=== PATIENT | male | born 1940 | race African-American/Black ===

== ENCOUNTER 2018-02-15 15:40 | Inpatient (IN) ==
--- NOTE | 2018-02-15 15:57 | Emergency Department Note ---
Disposition Clinical Impression: NSTEMI (non-ST elevated myocardial infarction) Chest pain Qualifiers: Chest pain type: unspecified Qualified Code(s): R07.9 - Chest pain, unspecified Disposition: Admitted As Inpatient Condition: Good [facility]: [facility] [Primary Care Provider[facility] - Forms: ED Satisfaction Letter Time of Disposition: 17:17 General Adult HPI - General Chief complaint: ED Chest Pain Stated complaint: CP Time Seen by Provider: 02/15/18 15:48 Source: patient, EMS Limitations: no limitations Nursing Notes Reviewed: Yes Vital Signs Reviewed: Yes - History of Present Illness HPI Narrative: Patient is a 77 year old male that presents to the emergency via EMS from the [place] for chest pain. Patient reported that he had an elevated troponin at the [facility] of 0.104. Patient states that his chest pain was severe prior to arrival. States that his chest pain was a 10 out of 10 but reports that he is not having any active chest pain at this time. Patient states that his pain was left- sided and radiated into his left shoulder and neck. Patient states that is a pressure feeling patient does state that he has had multiple stents had been placed in the past abnormal [place]. Patient denies any diaphoresis or nausea during these events. Pain Scale: 0 - Related Data Home Medications Medication Instructions Recorded Confirmed HYDROcodone/Acet 5/325 mg [[place] 1 tab PO Q6H PRN 02/15/18 02/15/18 5-325 mg] Allergies Allergy/AdvReac Type Severity Reaction Status Date / Time No Known Allergies Allergy Verified 02/15/18 16:03 Cardiovascular: Reports: chest pain Gastrointestinal: Denies: abdominal pain, nausea Musculoskeletal: Reports: neck pain. Denies: back pain Past Medical History - Past Medical History Medical history: Reports: arthritis, cancer, hyperlipidemia, hypertension, other Surgical history: Reports: appendectomy Psychiatric history: Reports: anxiety, depression - Social History Smoking Status: Current every day smoker Smokeless Tobacco Status: No Alcohol use: Reports: heavy Drug use: Reports: marijuana Physical Exam - General Limitations: no limitations General appearance: alert, in no apparent distress - Head Head exam: atraumatic, normocephalic - Eye Eye exam: Present: normal appearance, EOMI - Neck Neck exam: Present: normal inspection, full ROM, trachea midline - Respiratory Respiratory exam: Present: normal lung sounds bilaterally. Absent: respiratory distress, wheezes - Cardiovascular Cardiovascular exam: Present: regular rate, normal rhythm, normal heart sounds, +S1, +S2 - Abdominal Exam Abdominal exam: Present: soft, Non-Tender, normal bowel sounds - Neurological Exam Neurological exam: Present: alert, oriented X3 - Psychiatric Psychiatric exam: Present: normal affect, normal mood - Skin Skin exam: Present: warm, dry, intact Course - Reevaluation(s) Reevaluation #1: Occult spoke with the admitting hospice and they have accepted the patient to his service. Patient be admitted to the hospital. Further evaluation and management. He requested we call cardiology this will be done. Time: 17:09 Reevaluation #2: I called and spoke with cardiology and they are aware of the patient. They did not have any further recommendations at this time. Time: 17:13 Vital Signs Temperature 98.8 F 02/15/18 15:44 Pulse Rate 86 02/15/18 15:44 Respiratory Rate 24 02/15/18 15:44 Blood Pressure 163/84 02/15/18 15:44 O2 Sat by Pulse Oximetry 97 02/15/18 15:44 Temperature 98.8 F 02/15/18 15:44 Pulse Rate 86 02/15/18 15:44 Respiratory Rate 24 02/15/18 15:44 Blood Pressure 163/84 02/15/18 15:44 O2 Sat by Pulse Oximetry 97 02/15/18 15:44 Oxygen Delivery Oxygen Delivery Room Air Medical Decision Making - MDM Narrative Medical decision making narrative: Due to the patient presenting with left-sided chest pain and a elevated troponin from an outside facility we will repeat laboratory testing including a CBC, BMP, troponin chest x-ray and EKG. The patient will likely need to be admitted to the hospital for further evaluation and management. If the troponin is elevated. [place] we will start the patient on ACS protocol heparin. The patient did receive aspirin at outside facility. I do not feel it is necessary for the patient to receive another dose here. Patient's chest x-ray showed no acute cardial or pulmonary process. The patient's troponin is 0.15. Liz. The patient will be started on ACS protocol heparin and will need to be admitted to the hospital. The remainder of his laboratory testing is unremarkable. I called and spoke with the hospitals in the promotions executive producer. The patient will be admitted to the hospital for further evaluation and management at this time. - Medical Records Medical records reviewed: Yes I reviewed the patient's medical records. - Lab Data Lab results reviewed: Yes I reviewed the patient's lab results. Result diagrams: 02/15/18 16:02 02/15/18 16:02 Lab Results 02/15/18 02/15/18 02/15/18 Range/Units 16:02 16:02 16:02 WBC 5.1 (4.3-11.1) K/mcL RBC 4.29 (4.19-5.50) M/mcL Hgb 13.4 (12.9-16.9) g/dL Hct 40.7 (37.5-50.1) % MCV 94.9 (83.0-100.0) fL MCH 31.2 (28.0-33.3) pg MCHC 32.9 (31.6-35.5) g/dL RDW 16.0 H (11.5-14.5) % Plt Count 132 L (140-400) K/mcL MPV 10.3 (9.4-12.4) fL Immature Gran % 0.6 (0-4) % Seg Neutrophils % 46.6 % Lymphocytes % 34.2 % Monocytes % 16.8 % Eosinophils % 1.4 % Basophils % 0.4 % Neutrophils # 2.4 (1.6-8.9) K/mcL Lymphocytes # 1.7 (0.6-4.6) K/mcL Monocytes # 0.9 (0.0-1.3) K/mcL Eosinophils # 0.1 (0.0-0.6) K/mcL Basophils # 0.0 (0.0-0.2) K/mcL PT 12.0 (9.4-12.1) Seconds INR 1.1 APTT 34.3 (26.0-36.0) Seconds Sodium 138 (136-145) mEq/L Potassium 4.1 (3.5-5.1) mEq/L Chloride 106 (98-107) mEq/L Carbon Dioxide 25 (23-29) mEq/L BUN 14 (8-23) mg/dL Creatinine 1.01 (0.70-1.30) mg/dL Est GFR ( Amer) > 60 (> 60) Est GFR (Non-Af Amer) > 60 (> 60) BUN/Creatinine Ratio 14 (6-26) Glucose 100 (70-105) mg/dL Calculated Osmolality 287 (280-300) Calcium 9.4 (8.6-10.3) mg/dL Troponin I 0.15 H* (< 0.04) ng/mL - Radiology Data Radiology results reviewed: Yes I reviewed the patient's radiology results. Chest X-Ray 02/15/18 15:50 IMPRESSION: No acute cardiopulmonary abnormality. D/ / Mithc Mccall / Mitch Mccall Interpreting Provider: Mitch Mccall - EKG Data EKG #1 EKG attestation: Yes I reviewed and interpreted this EKG. EKG results narrative: EKG shows a sinus rhythm at a rate of 75 bpm, CA interval of 142, QRS duration 98, QTc of 430 with a normal axis. There is no evidence of STEMI on EKG. This was compared to previous EKG on 03/21/17 which showed a sinus rhythm at a rate of 71 bpm.
[2018-02-15 16:23] LABS: Basophils % 0.4 %; Eosinophils # 0.1 K/mcL (0.0-0.6); Eosinophils % 1.4 %; Hematocrit 40.7 % (37.5-50.1); Hemoglobin 13.4 g/dL (12.9-16.9); Immature Granulocytes % 0.6 % (0-4); Lymphocytes # 1.7 K/mcL (0.6-4.6); Lymphocytes % 34.2 %; Mean Corpuscular HGB Conc 32.9 g/dL (31.6-35.5); Mean Corpuscular Hemoglobin 31.2 pg (28.0-33.3); Mean Corpuscular Volume 94.9 fL (83.0-100.0); Mean Platelet Volume 10.3 fL (9.4-12.4); Monocytes # 0.9 K/mcL (0.0-1.3); Monocytes % 16.8 %; Neutrophils # 2.4 K/mcL (1.6-8.9); Platelet Count 132 K/mcL (140-400); Red Blood Count 4.29 M/mcL (4.19-5.50); Segmented Neutrophils % 46.6 %
[2018-02-15 16:37] LABS: BUN/Creatinine Ratio 14 (6-26); Blood Urea Nitrogen 14 mg/dL (8-23); Calcium 9.4 mg/dL (8.6-10.3); Carbon Dioxide 25 mEq/L (23-29); Chloride 106 mEq/L (98-107); Glucose 100 mg/dL (70-105); Osmolality,Calculated 287 (280-300); Potassium 4.1 mEq/L (3.5-5.1); Sodium 138 mEq/L (136-145); eGFR For African Americans > 60 (> 60); eGFR For Non-African Americans > 60 (> 60)
[2018-02-15 16:48] LABS: Troponin I 0.15 ng/mL (< 0.04)
[2018-02-15] MEDS ORDERED: *HR* Heparin 5,000 UNIT/ML VIAL IVP PRN ×2 (16:48)
[2018-02-15] MEDS ORDERED: *HR* Heparin 5,000 UNIT/ML VIAL IVP ONE (16:48)
[2018-02-15 17:08] LABS: INR 1.1
[2018-02-15 17:11] LABS: Activated Partial Thrombo Time 34.3 Seconds (26.0-36.0)
[2018-02-15] MEDS ORDERED: Naloxone 0.4 MG/ML INJ IVP PRN (17:17)
[2018-02-15] MEDS: Heparin 25,000 UNIT/500 ML D5W 25,000 UNIT/500 ML BAG IVC SCH (17:19)
--- NOTE | 2018-02-15 17:40 | Emergency Department Note ---
Disposition Clinical Impression: NSTEMI (non-ST elevated myocardial infarction) Chest pain Qualifiers: Chest pain type: unspecified Qualified Code(s): R07.9 - Chest pain, unspecified Disposition: Admitted As Inpatient Condition: Good General Adult HPI - General Chief complaint: ED Chest Pain Stated complaint: CP Time Seen by Provider: 02/15/18 15:48 Source: patient, EMS Limitations: no limitations - History of Present Illness Pain Scale: 0 - Related Data Home Medications Medication Instructions Recorded Confirmed HYDROcodone/Acet 5/325 mg [[place] 1 tab PO Q6H PRN 02/15/18 02/15/18 5-325 mg] Allergies Allergy/AdvReac Type Severity Reaction Status Date / Time No Known Allergies Allergy Verified 02/15/18 16:03 Cardiovascular: Reports: chest pain Gastrointestinal: Denies: abdominal pain, nausea Musculoskeletal: Reports: neck pain. Denies: back pain Past Medical History - Past Medical History Medical history: Reports: arthritis, cancer, hyperlipidemia, hypertension, other Surgical history: Reports: appendectomy Psychiatric history: Reports: anxiety, depression - Social History Smoking Status: Current every day smoker Smokeless Tobacco Status: No Alcohol use: Reports: heavy Drug use: Reports: marijuana Physical Exam - General Limitations: no limitations General appearance: alert, in no apparent distress Course Vital Signs Temperature 98.8 F 02/15/18 15:44 Pulse Rate 86 02/15/18 15:44 Respiratory Rate 24 02/15/18 15:44 Blood Pressure 163/84 02/15/18 15:44 O2 Sat by Pulse Oximetry 97 02/15/18 15:44 Temperature 98.8 F 02/15/18 15:44 Pulse Rate 85 02/15/18 17:25 Respiratory Rate 18 02/15/18 17:25 Blood Pressure 160/111 02/15/18 17:25 O2 Sat by Pulse Oximetry 96 02/15/18 17:25 Oxygen Delivery Oxygen Delivery Room Air Medical Decision Making - Lab Data Result diagrams: 02/15/18 16:02 02/15/18 16:02 Lab Results 02/15/18 02/15/18 02/15/18 Range/Units 16:02 16:02 16:02 WBC 5.1 (4.3-11.1) K/mcL RBC 4.29 (4.19-5.50) M/mcL Hgb 13.4 (12.9-16.9) g/dL Hct 40.7 (37.5-50.1) % MCV 94.9 (83.0-100.0) fL MCH 31.2 (28.0-33.3) pg MCHC 32.9 (31.6-35.5) g/dL RDW 16.0 H (11.5-14.5) % Plt Count 132 L (140-400) K/mcL MPV 10.3 (9.4-12.4) fL Immature Gran % 0.6 (0-4) % Seg Neutrophils % 46.6 % Lymphocytes % 34.2 % Monocytes % 16.8 % Eosinophils % 1.4 % Basophils % 0.4 % Neutrophils # 2.4 (1.6-8.9) K/mcL Lymphocytes # 1.7 (0.6-4.6) K/mcL Monocytes # 0.9 (0.0-1.3) K/mcL Eosinophils # 0.1 (0.0-0.6) K/mcL Basophils # 0.0 (0.0-0.2) K/mcL PT 12.0 (9.4-12.1) Seconds INR 1.1 APTT 34.3 (26.0-36.0) Seconds Sodium 138 (136-145) mEq/L Potassium 4.1 (3.5-5.1) mEq/L Chloride 106 (98-107) mEq/L Carbon Dioxide 25 (23-29) mEq/L BUN 14 (8-23) mg/dL Creatinine 1.01 (0.70-1.30) mg/dL Est GFR ( Amer) > 60 (> 60) Est GFR (Non-Af Amer) > 60 (> 60) BUN/Creatinine Ratio 14 (6-26) Glucose 100 (70-105) mg/dL Calculated Osmolality 287 (280-300) Calcium 9.4 (8.6-10.3) mg/dL Troponin I 0.15 H* (< 0.04) ng/mL Attestation Statement - Attestation Attestation: I examined this patient and my medical decision-making was reviewed with the Resident Physician. I agree with the documented findings, disposition and treatment plan as described except to the extent set forth below. 77 year old male presents to the ED with complaints of chest pain for the past 1.5 months and has had muliptle evalution for his exertional chest pain which appears to be gettig worse he was evaluated at the CT and found to have a troponin of 0.104. Appears to be an NSTEMI, no new ischemic changes on EKG and currently chest pain free. We will admit to medicine with heparin drip
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
[2018-02-15 23:42] LABS: Activated Partial Thrombo Time 122.9 Seconds (26.0-36.0)
[2018-02-15 23:43] LABS: Heparin anti-factor XA UFH 0.58 IU/mL (0.30-0.70)
[2018-02-15] MEDS ORDERED: Nitroglycerin 0.4 MG TAB.SUBL SL PRN (23:58)
[2018-02-16 05:00] LABS: Hematocrit 38.4 % (37.5-50.1); Hemoglobin 12.6 g/dL (12.9-16.9); Mean Corpuscular HGB Conc 32.8 g/dL (31.6-35.5); Mean Corpuscular Hemoglobin 31.3 pg (28.0-33.3); Mean Corpuscular Volume 95.5 fL (83.0-100.0); Mean Platelet Volume 10.7 fL (9.4-12.4); Platelet Count 129 K/mcL (140-400); Red Blood Count 4.02 M/mcL (4.19-5.50); Red Cell Distribution Width 16.1 % (11.5-14.5)
[2018-02-16 05:25] LABS: BUN/Creatinine Ratio 16 (6-26); Blood Urea Nitrogen 16 mg/dL (8-23); Calcium 9.1 mg/dL (8.6-10.3); Carbon Dioxide 22 mEq/L (23-29); Chloride 108 mEq/L (98-107); Chol/HDL Ratio 3.8 (0-4.9); Cholesterol 128 mg/dL (< 200); Glucose 118 mg/dL (70-105); HDL Cholesterol 34 mg/dL (40-59); LDL Cholesterol,Calculated 66 mg/dL (0-99); Osmolality,Calculated 288 (280-300); Sodium 138 mEq/L (136-145); Triglycerides 141 mg/dL (< 150); eGFR For African Americans > 60 (> 60); eGFR For Non-African Americans > 60 (> 60)
[2018-02-16] MEDS: Aspirin 81 MG TAB.CHEW PO SCH (08:46)
--- NOTE | 2018-02-16 08:58 | Cardiology Consult Note ---
Date of Encounter: 02/16/18 Time of Encounter: 08:56 Assessment and Plan (1) NSTEMI (non-ST elevated myocardial infarction) Current Visit: Yes Status: Acute NSTEMI. Typical chest pain symptoms. Troponin up to 0.26. EKG from [place] shows NSR with PAC and ST depression in the inferior leads. Repeat EKG at [place] does not show ST depression. Agree with heparin gtt. Asa, statin, and bb. Check TTE. I discussed LHC. Patient states he will probably not take any medications after his LHC but he will consider. If he is not able to be compliant he will not be a good candidate for PCI. He is considering. Discussion w patient/family: The assessment and plan as outlined above was discussed with the patient and/or family members who expressed understanding and agreement. All questions were answered. Thank you for involving us in the care of your patient. Please call with any questions. History of Present Illness Consult date: 02/16/18 Requesting physician: Adrian Harmon Consult reason: NSTEMI Chief complaint: Chest pain History of present illness: Mr. Cooper is a 77 year old male with past medical history of CAD s/p PCI at [facility] in 2012, lung cancer s/p lung resection, and ETOH abuse. He presented to the [place] 02/13/18 with the c/o intermittent left sided chest pain radiating to his neck for about a month and a half. His pain increases with activity and is relieved with rest. His pain was increasing over the past week. He denies SOB. He states that he only takes a pain pill at home and sometimes an asa. He did not take his medications after his last stent placement. Past Med Surg Social Fam HX - Past Medical History Medical history: arthritis, cancer, coronary artery disease, other Psychiatric history: anxiety, depression - Past Surgical History Surgical History: appendectomy, other (Lung resection.) - Social History Smoking Status: Current every day smoker Packs per day: MARIJUANA Smokeless Tobacco Status: No Alcohol use: heavy (12+ beers a day and whisky) Drug use: marijuana - Family History Mother History Unknown: Yes Father Living Status: Age at : 65 Cause of : ENLARGED HEART Hx Family Cardiac Disorders: Yes Hx Family Respiratory Disorders: Yes Hx Family Endocrine Disorder: No Hx Family Medical Disorders: Yes Medications and Allergies HYDROcodone/Acet 5/325 mg [[place] 5-325 mg] 1 tab PO Q6H PRN 02/15/18 [History] 3 Allergy/AdvReac Type Severity Reaction Status Date / Time No Known Allergies Allergy Verified 02/15/18 16:03 All Systems Review: The remainder of the systems were reviewed and are negative Physical Examination Vital Signs, Last 4 Hours Temp Pulse Resp BP Pulse Ox 02/16/18 06:49 98.3 F 68 16 123/66 94 02/16/18 05:25 98.2 F 63 15 128/65 96 General: Conversant, No Apparent Distress HEENT: Normocephaly, Mucus Membranes Moist, Other (left periorbital, Ecchymosis) Neck: No JVD, Normal carotid pulses Cardiac: Reg Rate and Rhythm, Normal S1 and S2, No Murmur Lungs: Normal Breath Sounds, No Wheeze, Rales, Rhonchi Neuro: Alert and responsive, No focal deficits noted Abdomen: Soft, Non-Tender Skin: No rashes noted on visualized skin Musculoskeletal: No Chest Wall Tenderness Extremities: No Clubbing, No Cyanosis, No Edema, Normal Pulses Results 02/16/18 03:57 02/16/18 03:57 Lab Results 02/15/18 02/15/18 02/16/18 22:57 22:57 03:57 WBC Hgb Hct Plt Count APTT 122.9 H* D Sodium Potassium Chloride Carbon Dioxide BUN Creatinine Glucose Calcium Troponin I 0.26 H* 0.23 H* 02/16/18 02/16/18 02/16/18 03:57 03:57 06:58 WBC 4.0 L Hgb 12.6 L Hct 38.4 Plt Count 129 L APTT 57.7 H D Sodium 138 Potassium 4.0 Chloride 108 H Carbon Dioxide 22 L BUN 16 Creatinine 1.01 Glucose 118 H Calcium 9.1 Troponin I - Imaging and Cardiology Chest Xray: report reviewed Cardiac cath: pending - EKG Interpretation EKG results cardiology: personally reviewed Consult Discharge Plan - Plan Referrals: [facility],PCP [Primary Care Provider] -
--- NOTE | 2018-02-16 09:42 | Internal Med Progress Note ---
Date of Encounter: 02/16/18 Time of Encounter: 07:30 - Assessment and plan (1) NSTEMI (non-ST elevated myocardial infarction) Current Visit: Yes Status: Acute Assessment and plan: ASSESSMENT: - Chest pain due NSTEMI. Midsternal chest pain without radiation, mild shortness of breath, troponin elevation at 0.15, 0.26 peak and 0.23. Denies any current chest pain at this time, however, notes that his chest pain returns with activity. EKG showed normal sinus rhythm with PAC and ST depression in inferior leads however, repeat EKG at [facility] does not show ST depression. Due to clinical impression and patient history he needs to remain for further workup and evaluation. Prior h/o NV with stents x2 in 2012 at [facility]. No recent cardiac workup. Current smoker, and marijuana use. PLAN: -Continue ASA - Continue Metoprolol 12.5 mg PO BID, hold for HR lower than 55 bpm - Fasting lipids- -Continue Heparin drip - 2D Echo not yet completed; continue to follow up for results - Cardiology consult-cardiology rounded on the patient this morning. Discussed possible left heart catheter and possible need for PCI. Patient states that he would likely not be compliant with medications after PCI but that he will consider. Due to potential issues with noncompliance the patient may not be a great candidate for PCI. We will await further recommendations from cardiology (2) ETOH abuse Current Visit: Yes Status: Acute Assessment and plan: Patient has a history of alcohol abuse Reports drinking approximately 6-12 alcoholic beverages daily Denies ever having withdrawal; last alcoholic beverage was yesterday prior to arrival to the ED Implement CIWA protocol today with lorazepam, and add B12, thiamine and folate regimen (3) Adenocarcinoma of left lung Current Visit: Yes Status: Acute Assessment and plan: History of adenocarcinoma of the left lung. Has had a lobectomy at [facility]. He did not undergo chemotherapy or radiation. He reports that he follows with a physician at the [facility] however, he does not remember his name at this time. (4) Hyperlipidemia Current Visit: Yes Status: Acute Assessment and plan: Simvastatin Qualifiers: Hyperlipidemia type: unspecified Qualified Code(s): E78.5 - Hyperlipidemia , unspecified (5) Hypertension Current Visit: Yes Status: Acute Assessment and plan: History of hypertension, however he reports that he does not take any blood pressure medication. SBP has been as high as 160s today. Start patient on metoprolol 12.5 mg by mouth twice a day Qualifiers: Hypertension type: essential hypertension Qualified Code(s): I10 - Essential (primary) hypertension (6) DVT prophylaxis Current Visit: Yes Status: Acute Assessment and plan: Heparin drip - Time Spent With Patient Total time spent is greater than 50% in coordination of care (as documented) at patient's floor/unit and/or counseling patient: Greater than 35 minutes - Subjective Interval history: Mr. Cooper is a 77-year-old male here for NSTEMI-reporting chest pain for the last month and a half. chest pain has been getting worse over the last week. Chest pain is exertional with radiation to the left neck and left shoulder Currently resting comfortably in bed chest pain-free. However, he notes that while he was exerting himself early this morning getting to the restroom the chest pain briefly returned after the radiation to the neck and shoulder - Constitutional Vitals: Temp Pulse Resp BP Pulse Ox 98.3 F 68 16 123/66 94 02/16/18 06:49 02/16/18 06:49 02/16/18 06:49 02/16/18 06:49 02/16/18 06:49 General appearance: Present: cooperative, A&O X 3, no acute distress, answers questions appropriately - Neck Neck exam general surgery: Present: supple, trachea midline. Absent: lymphadenopathy - Respiratory Respiratory exam: Present: CTAB. Absent: tachypnea - Cardiovascular Cardiovascular exam: Present: +S1, +S2, systolic murmur - GI/Abdominal GI/Abdominal exam: Present: normal bowel sounds, soft, no peritoneal signs. Absent: distended, tenderness - Extremities Exam Extremities exam: Present: normal capillary refill, normal inspection, warm, radial pulses palpable and symmetrical. Absent: calf tenderness, cyanotic, pedal edema, tenderness - Neurological Exam Neurological exam: Present: alert, oriented X3. Absent: facial droop, speech deficit - Skin Skin exam: Present: dry, intact Internal Medicine: Result - Labs CBC & Chem 7: 02/16/18 03:57 02/16/18 03:57 Labs: Short CBC 02/16/18 Range/Units 03:57 WBC 4.0 L (4.3-11.1) K/mcL Hgb 12.6 L (12.9-16.9) g/dL Hct 38.4 (37.5-50.1) % Plt Count 129 L (140-400) K/mcL BMP 02/16/18 03:57 Sodium 138 Potassium 4.0 Chloride 108 H Carbon Dioxide 22 L BUN 16 Creatinine 1.01 Glucose 118 H Calcium 9.1 Cardiac Enzymes 02/15/18 02/16/18 Range/Units 22:57 03:57 Troponin I 0.26 H* 0.23 H* (< 0.04) ng/mL - ABG Interpretation ABG results: PT/INR, D-dimer PT 12.0 Seconds (9.4-12.1) 02/15/18 16:02 - EKG Interpretation EKG Interpreted by Myself: Yes EKG shows normal: sinus rhythm - Impressions Impressions Chest X-Ray 02/15/18 15:50 IMPRESSION: No acute cardiopulmonary abnormality. D/ / Mitch Mccall / Mitch Mccall Interpreting Provider: Mitch Mccall Consult Discharge Plan - Plan [facility]errals: [facility] [Primary Care Provider] -
[2018-02-16] MEDS ORDERED: *HR* Promethazine 25 MG/ML VIAL IVP PRN (10:06)
[2018-02-16] MEDS ORDERED: *HR* LORazepam 2 MG/ML VIAL IVP PRN ×3 (10:06)
--- NOTE | 2018-02-16 11:13 | Pre-Sedation Evaluation ---
Pre-sedation evaluation - Pre-sedation checklist Date of procedure: 02/16/18 Procedure: LHC Recent Vitals: Last Vital Signs Temp 98.3 F 02/16/18 06:49 Pulse 68 02/16/18 06:49 Resp 16 02/16/18 06:49 BP 123/66 02/16/18 06:49 Pulse Ox 94 02/16/18 06:49 ASA Classification *see protocol: CLASS II-Mild systemic disease
[2018-02-16] MEDS ORDERED: 0.9 % Sodium Chloride 2,000 ML ONE (15:14)
[2018-02-16] MEDS ORDERED: Heparin 1,000 UNITS/500 mL 500 ML ONE (15:14)
[2018-02-16] MEDS ORDERED: Nitroglycerin 1,000 MCG/10 ML VIAL IV ONE (15:14)
[2018-02-16] MEDS ORDERED: *HR* Heparin 10,000 UNIT/10 ML VIAL ONE (15:14)
[2018-02-16] MEDS ORDERED: ISOVUE-370 200 ML INFUS..BTL IV ONE ×2 (15:14→15:57)
--- NOTE | 2018-02-16 15:28 | Electrocardiograph Report ---
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
[2018-02-16] MEDS ORDERED: *HR* FentaNYL (PF) 100 MCG/2 ML VIAL ONE (15:37)
[2018-02-16] MEDS ORDERED: *HR* Midazolam HCl 2 MG/2 ML VIAL ONE (15:37)
[2018-02-16] MEDS ORDERED: Tirofiban 12.5 MG/250ML 12.5 MG/250 ML BAG ONE (15:59)
--- NOTE | 2018-02-16 17:38 | Invasive Diagnostic Lab Proc ---
Name: Sanju Cooper Date of Study: 02/16/2018 Date: 1940 Ht: 70.1in Medical Record#: [id number] Age: 77 Wt: 174.17lb Gender: Male BSA: 1.97 Order #: [id number] BMI: 24.93 Physicians Procedure Physician: Tete Herndon MD Referring MD: Referring MD: Staff Name Position Time In YaryTerra RN Hearth Feeder 03:39 PM Ezio Taylor RT (R) Scrub 03:39 PM Ryann Matias RT (R) Monitor 03:39 PM Indications Indication Non-Stemi Procedures Performed Procedure L HRT ARTERY/VENTRICLE ANGIO PRQ CARD JOLYNN STENT W/ANGIO 1 VSL PRQ CARDIAC ANGIO ADDL ART Pre-Procedure Checklist Informed consent is complete signed and on chart. H&P is on chart. ID band is on and ID verified with patient. Patient NPO for procedure The procedure was described for the patient and questions were answered. Blood Pressure: 133/73 ECG is on chart. Rhythm: NSR Plan of Care Patient will tolerate the procedure without complications. Adequate level of comfort will be maintained. Hemodynamics will remain stable Patient will recover from procedure without complications. Respiratory function will be maintained. Cardiac rhythm will remain stable. Patient temperature will be maintained. Patient and/or family have verbalized understanding of the procedure. Patient Education Chief Complaint/Reason for Test: Cardiac Cath Developmental Category: Geriatric (65+ years) Developmentally Appropriate for Age: Yes Learning Barriers: None Education Needs: Procedure Education Method: Verbal Information Taught: Cardiac Cath Educational Evaluation: Able to repeat information Intravenous Access Time IV Size Location DC'd Fluid/Drip Rate Units RN 02:37 PM 22g 1" Patent On Arrival Lt Arm 0.9NaCl 25 ml/hr Allergies No Known Allergies Vital Signs Time BP (mmHg) HR (bpm) O2 Sat. RR (bpm) LOC 03:38 PM 133 / 73 59 96 % 17 5 = Fully awake and oriented or at pre-proc level 03:40 PM / % 4 = Oriented but drowsy 03:40 PM / % 4 = Oriented but drowsy 03:55 PM / % 4 = Oriented but drowsy 04:11 PM / % 4 = Oriented but drowsy 03:38 PM 133 / 73 59 96 % 20 03:42 PM 127 / 72 59 95 % 18 03:47 PM 118 / 71 66 87 % 22 03:53 PM 142 / 77 64 96 % 13 03:57 PM 140 / 78 70 96 % 12 04:02 PM 135 / 78 65 95 % 16 04:07 PM 136 / 84 62 95 % 11 04:12 PM 147 / 74 61 96 % 15 04:17 PM 140 / 78 61 96 % 13 04:22 PM 127 / 90 68 95 % 8 04:27 PM 141 / 81 64 96 % 14 04:45 PM 135 / 81 58 93 % 16 5 = Fully awake and oriented or at pre-proc level 05:00 PM 131 / 73 59 94 % 16 5 = Fully awake and oriented or at pre-proc level 05:30 PM 125 / 67 64 96 % 16 5 = Fully awake and oriented or at pre-proc level Procedural Medications Time Medication Dose Units Method Given By 03:40 PM Oxygen 2 L/min nasal cannula Yary, Terra GERONIMO 03:40 PM Versed 1 mg Intravenous Kaser, Terra GERONIMO 03:40 PM Fentanyl 50 mcg Intravenous Kaser, Terra GERONIMO 03:44 PM Lidocaine 2% 8 ml Subcutaneous Tete Herndon MD 03:44 PM Versed 1 mg Intravenous Yary, Terra GERONIMO 03:44 PM Fentanyl 50 mcg Intravenous Kaser, Terra GERONIMO 03:47 PM Oxygen 4 L/min nasal cannula Kaser, Terra GERONIMO 03:52 PM Oxygen 6 L/min simple face mask Yary, Terra GERONIMO 04:01 PM Aggrastat Bolus: 37.5 ml Intravenous Yary, Terra GERONIMO 04:02 PM Aggrastat 12.5mg/250ml 13.5 ml Intravenous Yary, Terra GERONIMO 04:00 PM Heparin 4000 units Intravenous Yary, Terra GERONIMO 04:12 PM Oxygen 4 L/min nasal cannula Kaser, Terra GERONIMO 04:19 PM Nitroglycerin 100 mcg Intracoronary MoussKaz hassan MD 04:25 PM Plavix 600 mg Orally KaserTerra gunter RN ASA Classification: CLASS III- Severe systemic disease (i.e. prior AMI, diabetes with vascular complications, morbid obesity) Joshua Score Preprocedure Postprocedure Activity 2- Moves 4 extremities sustained head lift Activity Circulation 2- SBP +/= 20 points of pre-anesthetic level Circulation Consciousness 2- Awake and alert oriented x 3 Consciousness O2 Saturation 2- Able to maintain O2 satruation of 92% on room air O2 Saturation Respiratory 2- Able to deep breathe and cough well Respiratory Total Score 10 Total Score Contrast Agent: Isovue Diagnostic Contrast: 150 ml Total Contrast: 150 ml Fluoro Dose: 1344 mGy Activated Clotting Time Time Seconds to Clot 04:01 PM 174 04:30 PM 260 Procedure Log Time Note Enter By 03:36 PM CathStat 03:36 PM Vitals capture started with the following parameters, Patient=Adult, Interval=5 min, Initial Ktlygnpr=011 mmHg, Deflation Rate=3 mmHg, Cuff placed on Right Arm 03:38 PM HR=59 bpm, XFAF=787/73 mmhg, SpO2=96.0 %, Resp=20 B/min 03:39 PM 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 [email or web address] 03:40 PM Case Delayed No [email or web address] 03:40 PM Hair removed from procedure site in holding area using clippers. Bilateral groin prepped with Chloraprep by Ryann Matias RT (R), then patient was draped. Skin intact. [email or web address] 03:40 PM Physician arrived 15:40 [email or web address] 03:40 PM ASA Class CLASS III- Severe systemic disease (i.e. prior AMI, diabetes with vascular complications, morbid obesity) [email or web address] 03:40 PM Meet and eduardo completed [email or web address] 03:40 PM Sign in performed according to hospital policy. [email or web address] 03:40 PM Procedure start 15:40 [email or web address] 03:40 PM Time: 15:40 Oxygen on at 2 L/min per nasal cannula by Terra Pringle RN [email or web address] 03:40 PM Time: 15:40 Versed 1 mg Intravenous Given by Terra Pringle RN [email or web address] 03:40 PM Time: 15:40 Fentanyl 50 mcg Intravenous Given by Terra Pringle RN [email or web address] 03:40 PM Time: 15:40 Patient comfortable and pain free: Yes [email or web address] 03:40 PM Time: 15:40LOC: 4 = Oriented but drowsy [email or web address] 03:42 PM HR=59 bpm, PYKI=226/72 mmhg, SpO2=95.0 %, Resp=18 B/min 03:44 PM Time out performed according to hospital policy [email or web address] 03:44 PM Time: 15:44 8 ml Lidocaine 2% to right groin Subcutaneous Given by MD [email or web address] 03:44 PM Time: 15:44 Versed 1 mg Intravenous Given by Terra Pringle [email or web address] 03:44 PM Time: 15:44 Fentanyl 50 mcg Intravenous Given by Terra Pringle [email or web address] 03:44 PM Pressure channel 1 zeroed. 03:45 PM Recorded ECG: HR=61 Condition=Condition 1 03:46 PM Micro-Introducer Kit utilized for sheath placement [email or web address] 03:46 PM 3 mls contrast injected into Rt groin. [email or web address] 03:47 PM Time: 15:47 Oxygen on at 4 L/min per nasal cannula by Terra Pringle RN [email or web address] 03:47 PM HR=66 bpm, TFKR=472/71 mmhg, SpO2=87.0 %, Resp=22 B/min 03:47 PM 0.035 145cm Navilyst 3mmJ wire [id number] [email or web address] 03:47 PM 5Fr FL 4 catheter inserted over the wire DN [email or web address] 03:48 PM LCA angiography performed in multiple views. [email or web address] 03:48 PM Recorded Pressure: Ao, HR=63, Condition=Condition 1 (Aorta) Ao 101/62/79 03:49 PM Recorded Pressure: Ao, HR=68, Condition=Condition 1 (Aorta) Ao 100/30/65 03:50 PM Wire removed [email or web address] 03:51 PM 0.035 260cm Navilyst 3mmJ wire [id number] [email or web address] 03:51 PM 5Fr FR 4 catheter inserted over the wire DN [email or web address] 03:51 PM RCA angiography performed in multiple views. [email or web address] 03:52 PM Time: 15:52 Oxygen on at 6 L/min per simple face mask by Terra Pringle RN [email or web address] 03:52 PM Catheter removed [email or web address] 03:53 PM HR=64 bpm, LEBL=855/77 mmhg, SpO2=96.0 %, Resp=13 B/min 03:53 PM 5Fr Pigtail catheter inserted over the wire [facility] [email or web address] 03:53 PM Catheter selectively placed in left ventricle [email or web address] 03:54 PM Bolus angiogram of left Ventricle complete: 10 ml/sec for a total of 20 mls [email or web address] 03:54 PM Recorded Pressure: LV, HR=64, Condition=Condition 1 (Left Ventricle) LV 131/11/14 03:54 PM Recorded Pressure: LV, Ao, HR=65, Condition=Condition 1 (Left Ventricle) LV 127/14/8, (Aorta) Ao 128/35/86 03:55 PM Catheter removed [email or web address] 03:55 PM Time: 15:40LOC: 4 = Oriented but drowsy [email or web address] 03:56 PM Time: 15:40 Patient comfortable and pain free: Yes [email or web address] 03:57 PM HR=70 bpm, SNGB=560/78 mmhg, SpO2=96.0 %, Resp=12 B/min 03:59 PM Pressure channel 1 zeroed. 04:00 PM Time: 16:04 Heparin 4000 units Intravenous Given by Terra Pringle RN [email or web address] 04:01 PM 6Fr XB LAD 3.5 Runway guide catheter was used to cannulate the PCI vessel successfully. reused? No [email or web address] 04:01 PM .014 BMW Dickinson 190cm guide wire across target lesion- successful. reused? No [email or web address] 04:01 PM Inflation device was opened. [email or web address] 04:01 PM Recorded Pressure: Ao, HR=61, Condition=Condition 1 (Aorta) Ao 115/56/78 04:01 PM At 16:01 the ACT was 174 seconds. [email or web address] 04:01 PM Time: 16:01 Aggrastat Bolus: 37.5 ml Intravenous Given by Terra Pringle RN Ruiz pump [email or web address] 04:02 PM Time: 16:02 Aggrastat 12.5mg/250ml 13.5 ml Intravenous Given by Terra Pringle RN Ruiz pump [email or web address] 04:02 PM HR=65 bpm, BVBC=511/78 mmhg, SpO2=95.0 %, Resp=16 B/min 04:03 PM Lesion found in Proximal RCA. Pre Stenosis: 100 Pre HAMIDA Flow: 0: No Flow/No perfusion [email or web address] 04:03 PM 2.0 mm x 12 mm Emerge Monorail balloon across target lesion- successful. reused? No [email or web address] 04:05 PM Balloon inflated @ 6 debra for 9 seconds [email or web address] 04:05 PM Balloon inflated @ 6 debra for 6 seconds [email or web address] 04:05 PM Recorded Pressure: Ao, HR=62, Condition=Condition 1 (Aorta) Ao 113/60/82 04:06 PM Balloon catheter removed intact. [email or web address] 04:06 PM Lesion found in Distal Circumflex. Pre Stenosis: 95 Pre HAMIDA Flow: 2: Partial Flow/Perfusion (> 1 but < 3) [email or web address] 04:07 PM 3.0mm x 16mm Synergy drug-eluting stent across target lesion- successful Lot #[id number] [email or web address] 04:07 PM HR=62 bpm, NHDD=744/84 mmhg, SpO2=95.0 %, Resp=11 B/min 04:08 PM Stent deployed @ 8 debra for 6 seconds [email or web address] 04:08 PM Stent balloon reinflated @ 14 debra for 9 seconds [email or web address] 04:09 PM Stent delivery system removed intact. [email or web address] 04:11 PM Time: 15:56 Patient comfortable and pain free: Yes [email or web address] 04:11 PM Time: 15:55LOC: 4 = Oriented but drowsy [email or web address] 04:12 PM Recorded Pressure: Ao, HR=71, Condition=Condition 1 (Aorta) Ao 137/71/97 04:12 PM HR=61 bpm, SGBN=716/74 mmhg, SpO2=96.0 %, Resp=15 B/min 04:13 PM Time: 16:12 Oxygen on at 4 L/min per nasal cannula by Terra Pringle RN [email or web address] 04:16 PM 1.5 mm x 8 mm Mini Trek Rx balloon across target lesion- successful. reused? No [email or web address] 04:17 PM Balloon inflated @ 12 debra for 10 seconds [email or web address] 04:17 PM HR=61 bpm, DXCE=877/78 mmhg, SpO2=96.0 %, Resp=13 B/min 04:17 PM Balloon inflated @ 12 debra for 30 seconds [email or web address] 04:19 PM Balloon catheter removed intact. [email or web address] 04:19 PM Recorded Pressure: Ao, HR=60, Condition=Condition 1 (Aorta) Ao 123/53/83 04:19 PM Time: 16:19 Nitroglycerin 100 mcg Intracoronary Given by Kaz Herndon MD [email or web address] 04:20 PM Guide wire removed intact. [email or web address] 04:20 PM Guide catheter removed intact. [email or web address] 04:22 PM HR=68 bpm, TZQE=077/90 mmhg, SpO2=95.0 %, Resp=8 B/min 04:25 PM Time: 16:25 Plavix 600 mg Orally Given by Terra Pringle RN [email or web address] 04:26 PM Time: 16:11LOC: 4 = Oriented but drowsy [email or web address] 04:26 PM Time: 16:11 Patient comfortable and pain free: Yes [email or web address] 04:27 PM Procedure completed at 16:27 [email or web address] 04:27 PM Coronary Dominance: right [email or web address] 04:27 PM Did you address HAMIDA flow and Dominance? Yes [email or web address] 04:27 PM HR=64 bpm, PMQZ=338/81 mmhg, SpO2=96.0 %, Resp=14 B/min 04:27 PM Sign out completed: Radiation Dose 1343.83 mGy Fluoro Time: 12.4 Isovue 370 - 200ml contrast 150 ml given by Tete Herndon MD. Complications: NoneCardiac Rehab Consult needed: YesConfirmed administered medications: Yes [email or web address] 04:27 PM Isovue 370 - 200ml,1 Bottle(s) used. [email or web address] 04:27 PM Sheath left in place to be pulled on floor/holding areaV+Pad [email or web address] 04:27 PM Estimated Blood Loss: minimal [email or web address] 04:27 PM Post ECG NSR [email or web address] 04:28 PM Post Blood Pressure 141/81 [email or web address] 04:28 PM 16:28 Post Pulses Bilateral DP & PT 2+ [email or web address] 04:28 PM Information taught Cardiac Cath and PCI [email or web address] 04:28 PM Education needs Procedure, Plan of Care, and Disease Process [email or web address] 04:28 PM Learning barriers :None [email or web address] 04:28 PM Education Methods Verbal [email or web address] 04:28 PM Education evaluation Able to repeat information [email or web address] 04:28 PM Site status No bleeding/hematoma - Rt Groin as reported by Ezio Taylor RT (R) at 16:28 [email or web address] 04:28 PM Opsite applied [email or web address] 04:28 PM Family not available [email or web address] 04:28 PM Complications: None [email or web address] 04:28 PM Fluoro Time: 12.4 [email or web address] 04:28 PM Isovue 370 - 200ml contrast [address] Herndon. [email or web address] 04:28 PM Radiation Dose 1343.83 mGy [email or web address] 04:35 PM Delay to floor Bed availability [email or web address] 04:36 PM Report given to Corry GERONIMO Pt taken to Holding room Room #2. 16:36 [email or web address] 04:36 PM Patient out of room: 16:36 [email or web address] 05:28 PM Report given to Anil GERONIMO Pt taken to 2N Room #7. 17:28 [email or web address] 05:28 PM Delay to floor Bed availability [email or web address] 05:28 PM [facility]: 17:[email or web address] Complications Complication None None Hemodynamics Pressures Site Systolic/A Wave Diastolic/V Wave Mean AO 101 62 79 AO 100 30 65 LV 131 11 14 LV 127 14 8 AO 128 35 86 AO 115 56 78 AO 113 60 82 AO 137 71 97 AO 123 53 83 Post Procedure Information Blood Pressure: 141/81 mmHg Rhythm: NSR Post procedural instructions were not given Site Checks Time Location Status Staff Sheath In? Note 04:28 PM Rt Groin No bleeding/hematoma Ezio Taylor RT (R) 04:45 PM Rt Groin No bleeding/ No Hematoma Corry Almaraz RN Yes 05:00 PM Rt Groin No bleeding/ No Hematoma Corry Almaraz RN Yes 05:30 PM Rt Groin No bleeding/ No Hematoma Jordana Jean RN Yes Pulses Time Site Pre-Procedure Post-Procedure Note 02/16/2018 3:37:00 PM Bilateral DP & PT 2+ 02/16/2018 3:37:00 PM Bilateral radial 2+ 4:28:00 PM Bilateral DP & PT 2+ 02/16/2018 4:45:00 PM Bilateral DP & PT 2+ 02/16/2018 5:00:00 PM Bilateral DP & PT 2+ Updated by Jordana Jean RN on 02/16/2018 5:30:26 PM electronically signed on 02/16/2018 5:30:51 PM with status of Final
[2018-02-16] MEDS: *HR* HYDROcodone/Acet 5/325 mg TABLET PO PRN (18:34)
[2018-02-16 18:47] LABS: Activated Partial Thrombo Time 134.9 Seconds (26.0-36.0)
[2018-02-16 19:12] LABS: Heparin anti-factor XA UFH 0.61 IU/mL (0.30-0.70)
[2018-02-16] MEDS ORDERED: *HR* Atropine Sulfate 1 MG/10 ML SYRINGE ONE (20:45)
[2018-02-16] MEDS: Heparin 25,000 UNIT/500 ML D5W 25,000 UNIT/500 ML BAG IVC SCH (22:13)
[2018-02-17 02:57] LABS: Hemoglobin 12.4 g/dL (12.9-16.9); Mean Corpuscular HGB Conc 33.5 g/dL (31.6-35.5); Mean Corpuscular Hemoglobin 31.2 pg (28.0-33.3); Mean Platelet Volume 10.9 fL (9.4-12.4); Platelet Count 121 K/mcL (140-400); Red Blood Count 3.98 M/mcL (4.19-5.50); Red Cell Distribution Width 15.8 % (11.5-14.5)
[2018-02-17 03:18] LABS: BUN/Creatinine Ratio 16 (6-26); Blood Urea Nitrogen 14 mg/dL (8-23); Calcium 8.9 mg/dL (8.6-10.3); Carbon Dioxide 20 mEq/L (23-29); Chloride 109 mEq/L (98-107); Glucose 149 mg/dL (70-105); Osmolality,Calculated 285 (280-300); Potassium 3.8 mEq/L (3.5-5.1); Sodium 136 mEq/L (136-145); eGFR For African Americans > 60 (> 60); eGFR For Non-African Americans > 60 (> 60)
[2018-02-17] MEDS: Aspirin 81 MG TAB.CHEW PO SCH (08:48)
[2018-02-17] MEDS: *HR* HYDROcodone/Acet 5/325 mg TABLET PO PRN (08:50)
[2018-02-17] MEDS ORDERED: Thiamine (B-1) 100 MG TABLET PO SCH (09:00)
[2018-02-17] MEDS ORDERED: Vitamin B Complex/Vit C/Vit E 1 EACH TABLET PO SCH (09:00)
[2018-02-17] MEDS ORDERED: Folic Acid 1 MG TABLET PO SCH (09:00)
--- NOTE | 2018-02-17 10:08 | Cardiology Progress Note ---
Date of Encounter: 02/17/18 Time of Encounter: 08:00 Assessment and Plan (1) NSTEMI (non-ST elevated myocardial infarction) Current Visit: Yes Status: Acute NSTEMI. Typical chest pain symptoms. Troponin up to 0.26 and trended down. S/p LHC 02/16/18- 30% stenosis pLAD, patent mLAD stent, pLcx with 55% stenosis, 85% distal Lcx stenosis s/p PTCA and JOLYNN, 80% stenosis OM bifurcation lesion s/ p PTCA to 0%. pRCA with 100% stenosis. There was no complication from the procedure. Denies recurrent chest pain. No complications from right femoral access site. Importance of DAPT with asa and plavix uninterrupted for minimum of one year discussed and he voiced understanding and states he will try. Posiible adverse event including NC and from not taking DAPT reviewed. Continue statin and BB. Activity restrictions reviewed as stated above.Cardiac rehab ordered. Cardiology will sign off. Out-pt f/u will be coordinated by [facility]. Discussion w patient/family: The assessment and plan as outlined above was discussed with the patient and/or family members who expressed understanding and agreement. All questions were answered. Thank you for involving us in the care of your patient. Please call with any questions. Subjective Principal diagnosis: NSTEMI Interval history: Mr. Cooper denies recurrent chest pain. No problems noted with right groin access. Objective Vital Signs, Last 4 Hours Temp Pulse Resp BP Pulse Ox 02/17/18 08:53 98.3 F 71 16 124/74 92 General: Conversant, No Apparent Distress HEENT: Atraumatic, Normocephaly, Mucus Membranes Moist Neck: No JVD, Normal carotid pulses Cardiac: Reg Rate and Rhythm, Normal S1 and S2, No Murmur Lungs: Normal Breath Sounds, No Wheeze, Rales, Rhonchi Neuro: Alert and responsive, No focal deficits noted Abdomen: Soft, Non-Tender Skin: No rashes noted on visualized skin Musculoskeletal: No Chest Wall Tenderness Extremities: No Clubbing, No Cyanosis, No Edema, Normal Pulses, Other (dressing removed from right groin. No hematoma. ) Results 02/17/18 02:46 02/17/18 02:46 Lab Results 02/16/18 02/17/18 02/17/18 18:07 02:46 02:46 WBC 5.8 Hgb 12.4 L Hct 37.0 L Plt Count 121 L APTT 134.9 H* D Sodium 136 Potassium 3.8 Chloride 109 H Carbon Dioxide 20 L BUN 14 Creatinine 0.86 Glucose 149 H Calcium 8.9 - Imaging and Cardiology Echo: report reviewed Cardiac cath: report reviewed - EKG Interpretation EKG results cardiology: personally reviewed Consult Discharge Plan - Plan Referrals: [facility] [Primary Care Provider] -
[2018-02-17 11:48] VITALS: BP 141/57
== END 2018-02-17 15:45 | disposition left against medical advice (07) | DRG 247 ==
LOC: EMEROO 15:40 → 2NENU 17:25 → 2NNU 02-16 18:17
PROVIDERS: ADMIT Nurse Practitioner; ATTEND Nurse Practitioner